=== PATIENT | male | born 1980 | race African-American/Black ===

== ENCOUNTER 2022-09-25 14:06 | Emergency (ER) | payer MEDICAID, OTHER ==
[~2022-09-25] VITALS: Ht 172.7 cm; Wt 73.0 kg
--- NOTE | 2022-09-25 14:57 | NUR ---
Patient discharged to home in stable condition. Written and verbal after care instructions given. Patient verbalizes understanding of instructions. Stressed follow up or return to ER for worsening s/s.
[2022-09-25 14:58] VITALS: BP 129/86
== END 2022-09-25 14:58 | disposition home or self-care (01) ==
LOC: ER 14:06
DX: H93.13 Tinnitus, bilateral (principal)
CPT/HCPCS: A4663

== ENCOUNTER 2023-01-23 11:18 | Emergency (ER) | payer MEDICAID ==
[~2023-01-23] VITALS: Ht 172.7 cm; Wt 73.0 kg
--- NOTE | 2023-01-23 11:36 | NUR ---
seen and examined by [facility] stable at this time
--- NOTE | 2023-01-23 11:46 | NUR ---
in room assessing pt. with Uday ARRINGTON as witness
--- NOTE | 2023-01-23 11:52 | NUR ---
ua collected and sent to lab
[2023-01-23] MEDS ORDERED: LIDOCAINE 5% PATCH TD ONE ×2 (12:00→12:01)
[2023-01-23] MEDS ORDERED: ACETAMINOPHEN 325 MG TABLET PO ONE (12:00)
[2023-01-23] MEDS ORDERED: ACETAMINOPHEN 325 MG TABLET ONE (12:01)
[2023-01-23 12:04] LABS: HEMATOCRIT 41.8 % (36.7-47.1); MEAN CORPUSCULAR HEMOGLOBIN 31.5 uug (23.8-33.4); MEAN CORPUSCULAR VOLUME 92.7 fL (73.0-96.2); PLATELET COUNT (AUTO) 319 K/uL (152-348)
[2023-01-23 12:10] LABS: POTASSIUM 3.9 mmol/L (3.5-5.1)
[2023-01-23 12:16] LABS: BILIRUBIN,TOTAL 0.6 mg/dL (0.2-1.0)
[2023-01-23 12:25] LABS: *BILIRUBIN,URIN NEGATIVE (NEGATIVE); *BLOOD, URINE NEGATIVE (NEGATIVE); *COLOR,URINE YELLOW (YELLOW); *KETONES,URINE NEGATIVE (NEGATIVE); *UROBILINOGEN,URINE 0.2 E.U./dl (NORMAL); LEUKOCYTE ESTERASE ,URINE NEGATIVE (NEGATIVE); NITRITE, URINE NEGATIVE (NEGATIVE); PH,URINE 5.5 (5.0-8.0); UGLUCOSE NEGATIVE (NEGATIVE)
[2023-01-23 12:26] LABS: *CLARITY,URINE CLEAR (CLEAR)
[2023-01-23 12:37] VITALS: BP 120/81
== END 2023-01-23 12:43 | disposition home or self-care (01) ==
LOC: ER 11:18
DX: R59.1 Generalized enlarged lymph nodes (principal)
CPT/HCPCS: 36415; 85025; 85730; A4663